=== PATIENT | female | born 1950 | race Caucasian/White ===

== ENCOUNTER 2019-02-17 08:52 | Day surgery (SDC) | payer MEDICARE, OTHER ==
[~2019-02-17 08:52] MED LIST: ALBU90OI6 INH; ALPR.25 PO; ATEN50 PO; BACL10 PO; BUDE10.22 INH; CHOL10002 PO; CYAN1000I IM; DULO60 PO; Desyrel150 MG PO; ENOX40I SC; ERGO400 PO; FENT100TP TOP; FOLI1 PO; FURO40 PO; HYDACE5325 PO; HYDSUL200 PO; LEVE500 PO; LEVSOD125 PO; LEVSOD150 PO; LIDO5TP TOP; LIOT25 PO; LORA10 PO; METO2.5 PO; METTREX2.5 IM; METTREX2.5 PO; MORP15ER PO; MORP60ER PO; OMEPRAZOLE MAGN20 MG PO; OXYC10ER PO; OXYC5 PO; Omeprazole20 M1 PO; PARO20 PO; PHENY100ER PO; POTCHL20ER PO; PRED5 PO; PROM25 PO; Percocet 10-321 EACH PO; QUIN300 PO; QUIN5 PO; SPIR50 PO; THYR60 PO; TORSE20 PO; TRAZ100 PO; ZYRTEC10 MG PO; Zofran Odt8 MG SL; [UNRECOGNIZED DRUG - REMARK]
== END 2019-02-17 22:39 | disposition home or self-care (01) ==
LOC: MOI US 08:52
PROC: 0HBU3ZX Excision of Left Breast, Percutaneous Approach, Diagnostic (ICD-10-PCS; principal; 2019-02-17)
DX: N64.1 Fat necrosis of breast (principal)
CPT/HCPCS: 19083; 77065; 88305; G0279

== ENCOUNTER → 2019-09-11 | Outpatient (CLI) | payer MEDICARE, OTHER ==
[2019-09-11 14:31] LABS: Creatinine, Urine Random 58.1 mg/dL (27.00-270.00); Protein, Urine Random 5.5 mg/dL (0.0-11.9)
== END ==
LOC: LAB SRC 10:34 → LAB SHORT 10:34
PROVIDERS: Internal Medicine
DX: N18.2 Chronic kidney disease, stage 2 (mild) (principal)
CPT/HCPCS: 82570; 84156

== ENCOUNTER → 2021-03-23 | Outpatient (CLI) | payer MEDICARE ==
[2021-03-25 14:36] LABS: Protein, Urine Quantitative 10.3 mg/dL (0.0-11.9)
[2021-03-25 14:42] LABS: Calcium, Urine 17.5 mg/dL (< 17.5); Calcium, Urine Calculation 157.5 mg/24hrs (42.0-353.0)
[2021-03-29 14:08] LABS: M-SPIKE, % Not Observed % (Not Observed); PROTEIN,TOTAL,URINE 6.9 mg/dL (Not Estab.)
== END | disposition home or self-care (01) ==
LOC: LAB 10:00 → LAB SHORT 10:00
PROVIDERS: Internal Medicine
DX: N18.31 Chronic kidney disease, stage 3a (principal); E83.52 Hypercalcemia
CPT/HCPCS: 81050; 82340; 84156; 84166

== ENCOUNTER → 2021-07-05 | Outpatient (CLI) | payer MEDICARE ==
[2021-07-05 16:22] LABS: Calcium, Urine 11.6 mg/dL (< 17.5)
== END ==
LOC: LAB SHORT 13:34 → LAB 13:34
PROVIDERS: Internal Medicine
DX: E21.3 Hyperparathyroidism, unspecified (principal); E55.9 Vitamin D deficiency, unspecified
CPT/HCPCS: 81050; 82340

== ENCOUNTER → 2023-09-18 | Outpatient (CLI) | payer MEDICARE ==
[~2023-09-18] MED LIST changes: +ABAT250V SC; +Acetaminophen650 M1 PO; +BUPRENORPHINE HC2 M1 SL; +CETI5 PO; +DIPH50 PO; +DOC250 PO; +FAMO20 PO; +MAGNESIUM OXID500 MG PO
[2023-09-18 15:18] LABS: Bun/Creatinine Ratio 24.6 (12.0-20.0); Calcium, Blood 9.9 mg/dL (8.5-10.1); Creatinine, Blood 0.94 mg/dL (0.40-1.00); Magnesium, Blood 2.3 mg/dL (1.6-2.4); Potassium, Blood 3.7 mmol/L (3.5-5.5)
== END ==
LOC: LAB SHORT 11:00 → LAB EV 11:00
PROVIDERS: Internal Medicine
DX: E87.6 Hypokalemia (principal); R60.9 Edema, unspecified; E83.42 Hypomagnesemia
CPT/HCPCS: 80048; 83735

== ENCOUNTER 2024-09-11 12:29 | Emergency (ER) | payer OTHER ==
[~2024-09-11] VITALS: Ht 172.7 cm; Wt 95.7 kg
[2024-09-11 12:45] VITALS: BP 130/96
[2024-09-11 13:44] LABS: BASOPHILS ABSOLUTE AUTO 0.09 K/mm3 (0.00-0.23); BASOPHILS PERCENT AUTO 1 % (0-2); EOSINOPHILS ABSOLUTE AUTO 0.17 K/mm3 (0.00-0.68); EOSINOPHILS PERCENT AUTO 2 % (0-6); Hematocrit 44.5 % (33.0-51.0); Hemoglobin 14.8 g/dL (11.5-16.0); IMMATURE GRAN ABSOLUTE AUTO 0.03 K/mm3 (0.00-0.10); IMMATURE GRAN PERCENT AUTO 0 % (0-1); LYMPHOCYTES ABSOLUTE AUTO 2.47 K/mm3 (0.84-5.20); LYMPHOCYTES PERCENT AUTO 28 % (21-46); MONOCYTES PERCENT AUTO 8 % (4-13); Mean Corpuscular HGB 29.4 pg (26.0-34.0); Mean Corpuscular HGB Conc 33.3 g/dL (31.5-36.5); Mean Corpuscular Volume 89 fL (80-100); Mean Platelet Volume 10.8 fL (9.1-12.4); NEUTROPHILS ABSOLUTE AUTO 5.49 K/mm3 (1.96-9.15); NEUTROPHILS PERCENT AUTO 61 % (41-73); Platelet Count 275 K/mm3 (150-400); RDW Coefficient Variation 12.8 % (11.7-14.2); RDW Standard Deviation 41.5 fL (35.1-46.3); Red Blood Cell Count 5.03 M/mm3 (3.80-5.20); White Blood Cell Count 8.95 K/mm3 (4.00-11.30)
[2024-09-11 14:08] LABS: Albumin, Blood 3.2 g/dL (3.4-5.0); Albumin/Globulin Ratio 0.8 (0.8-1.8); Bilirubin, Total 0.4 mg/dL (0.1-1.0); Bun/Creatinine Ratio 22.6 (12.0-20.0); Calcium, Blood 10.2 mg/dL (8.5-10.1); Creatinine, Blood 0.66 mg/dL (0.40-1.00); Globulin, Blood 4.2 g/dL (2.2-4.0); Potassium, Blood 4.6 mmol/L (3.5-5.5); Total Protein, Blood 7.4 g/dL (6.4-8.2)
[2024-09-11] MEDS ORDERED: MECL25 PO (17:17)
== END 2024-09-11 17:55 ==
LOC: ER 12:29
PROVIDERS: Student in an Organized Health Care Education/Training Program
DX: S00.03XA Contusion of scalp, initial encounter (principal); H81.10 Benign paroxysmal vertigo, unspecified ear; I48.91 Unspecified atrial fibrillation; J45.909 Unspecified asthma, uncomplicated; I10 Essential (primary) hypertension; E03.9 Hypothyroidism, unspecified; M06.9 Rheumatoid arthritis, unspecified; Z88.6 Allergy status to analgesic agent; Z88.1 Allergy status to other antibiotic agents; Z88.0 Allergy status to penicillin; Z88.8 Allergy status to other drugs, medicaments and biological substances; Z91.048 Other nonmedicinal substance allergy status; Z79.890 Hormone replacement therapy; Z79.01 Long term (current) use of anticoagulants; Z79.899 Other long term (current) drug therapy; W18.30XA Fall on same level, unspecified, initial encounter
CPT/HCPCS: 70450; 80053; 84484; 85025; 99284-25

== ENCOUNTER → 2024-09-30 | Outpatient (CLI) | payer OTHER ==
[~2024-09-30] MED LIST changes: +MECL25 PO
[2024-09-30 12:28] LABS: Source, Urine Voided
[2024-09-30 14:11] LABS: Appearance, Urine Clear (Clear); Bilirubin, Urine Neg (Neg); Blood, Urine Neg (Neg); Color, Urine Yellow (P-Yellow); Glucose Qualitative, Urine Neg (Neg); Ketones, Urine Neg (Neg); Leukocyte Esterase, Urine Neg (Neg); Nitrite, Urine Neg (Neg); Protein, Urine Neg (Neg); Specific Gravity, Urine 1.015 (1.003-1.022); Urobilinogen, Urine NORM (Normal)
== END | disposition home or self-care (01) ==
LOC: LAB 07:04 → LAB SHORT 07:04
PROVIDERS: Internal Medicine
DX: N18.2 Chronic kidney disease, stage 2 (mild) (principal); E03.9 Hypothyroidism, unspecified
CPT/HCPCS: 81003